=== PATIENT | female | born 1970 | race Caucasian/White ===

== ENCOUNTER → 2022-06-09 | Day surgery (SDC) | payer OTHER ==
[~2022-06-09] VITALS: Ht 157.5 cm; Wt 90.7 kg
[~2022-06-09] MED LIST: DICLOFENAC SODI25 MG PO; LIPITOR 10MG TA10 MG PO; LISINOPRIL-HCT1 EAC2 PO; VITAMIN D350 MCG PO
== END | disposition home or self-care (01) ==
LOC: FAS 06:21
DX: Z12.11 Encounter for screening for malignant neoplasm of colon (principal); K63.5 Polyp of colon; E78.5 Hyperlipidemia, unspecified; I10 Essential (primary) hypertension; K64.8 Other hemorrhoids; Z79.899 Other long term (current) drug therapy
CPT/HCPCS: J2704; J7120